=== PATIENT | female | born 1970 | race African-American/Black ===

== ENCOUNTER 2025-02-26 11:21 | Emergency (ER) | payer OTHER ==
[~2025-02-26] VITALS: Ht 160 cm; Wt 83.9 kg
[2025-02-26] MEDS ORDERED: ACETAMINOPHEN ES 500 MG TABLET ONE (11:56)
[2025-02-26] MEDS ORDERED: IBUPROFEN 600 MG TABLET ONE (11:56)
[2025-02-26] MEDS: ACETAMINOPHEN ES 500 MG TABLET PO ONE (12:00)
[2025-02-26] MEDS: IBUPROFEN 600 MG TABLET PO ONE (12:01)
[2025-02-26] MEDS ORDERED: ACET-2605 PO (12:50)
[2025-02-26] MEDS ORDERED: IBUP-1490 PO (12:50)
[2025-02-26 14:10] VITALS: BP 107/57; TEMP 98.3; O2SAT 98
== END 2025-02-26 14:11 | disposition home or self-care (01) ==
LOC: ER 11:24
DX: M25.561 Pain in right knee (principal); E78.5 Hyperlipidemia, unspecified
CPT/HCPCS: 73564-TC